=== PATIENT | male | born 1985 | race Caucasian/White ===

== ENCOUNTER 2018-12-24 17:54 | Emergency (ER) | payer SELFPAY ==
[~2018-12-24] VITALS: Ht 157.5 cm; Wt 64.9 kg
--- NOTE | 2018-12-24 18:00 | NUR ---
BIBRA 89 C/O WITNESSED SEIZURE, BG129. PATIENT A/OX2, WITH EPISODES OF CONFUSION, BREATHING EVEN AND UNLABORED, NO SOB NOTED, NEEDS ATTENDED. SEIZURE PRECAUTION OBSERVED. SIDERAILS PADDED.
[2018-12-24] MEDS ORDERED: LEVETIRACETAM (250 MG) 250 MG TABLET PO ONE ×2 (18:37→19:00)
[2018-12-24 19:05] VITALS: BP 130/70
--- NOTE | 2018-12-24 19:13 | NUR ---
PATIENT A/OX4, NO DISTRESS NOTED. VITALS STABLE. IV removed. Catheter intact and site benign. Pressure and 4x4 applied to site. No bleeding noted.Patient discharged to home in stable condition. Written and verbal after care instructions given. Patient verbalizes understanding of instruction.
== END 2018-12-24 19:13 | disposition home or self-care (01) ==
LOC: ER 17:58
DX: G40.909 Epilepsy, unspecified, not intractable, without status epilepticus (principal)